=== PATIENT | female | born 1990 | race Hispanic/Latino ===

== ENCOUNTER 2025-05-27 07:52 | Outpatient (CLI) | payer OTHER | END 2025-05-27 07:53 | disposition home or self-care (01) | LOC: EEVIPCON 07:52 → ULT 07:52 | PROVIDERS: ATTEND Family Medicine | DX: E03.9 Hypothyroidism, unspecified (principal); E06.9 Thyroiditis, unspecified; R93.89 Abnormal findings on diagnostic imaging of other specified body structures | CPT/HCPCS: 76536 ==